=== PATIENT | male | born 1990 | race Caucasian/White ===

== ENCOUNTER 2018-03-11 15:25 | Emergency (ER) | payer BC, OTHER ==
[2018-03-11 15:38] VITALS: BP 136/70
--- NOTE | 2018-03-11 15:47 | UC ---
Skin Complaint HPI - HPI Summary HPI Summary: PATIENT PRESENTS WITH A TICK BITE TO HIS RIGHT ABDOMEN. IS FAIRLY CERTAIN THE TICK ATTACHED WITHIN THE PAST 24 HOURS AND HE REMOVED IT TODAY. HE HAS DEVELOPED A RED RING AROUND THE BITE SITE. OTHERWISE FEELS WELL. NO FEVER, HEADACHE, BODY ACHES, JOINT PAIN. IS AN ACTIVE PERSON AND SPENDS A LOT OF TIME OUTSIDE. - History of Current Complaint Chief Complaint: UCSkin Time Seen by Provider: 03/11/18 15:29 Stated Complaint: TICK BITE Hx Obtained From: Patient Onset/Duration: Gradual Onset, Lasting Days, Still Present Onset Severity: Mild Current Severity: Mild Pain Intensity: 0 Pain Scale Used: 0-10 Numeric Location: Discrete - RIGHT ABDOMEN Character: Redness Aggravating Factor(s): Nothing Alleviating Factor(s): Nothing Associated Signs & Symptoms: Positive: Rash Related History: Insect Bite/Sting - Allergy/Home Medications Allergies/Adverse Reactions: Allergies Allergy/AdvReac Type Severity Reaction Status Date / Time cefixime [From Suprax] Allergy Rash Verified 03/11/18 15:39 Penicillins Allergy Rash Verified 03/11/18 15:39 Review of Systems Constitutional: Negative Skin: Rash Respiratory: Negative Cardiovascular: Negative Gastrointestinal: Negative All Other Systems Reviewed And Are Negative: Yes PMH/Surg Hx/FS Hx/Imm Hx Previously Healthy: Yes - Surgical History Surgical History: Yes Surgery Procedure, Year, and Place: inguinal hernia - Family History Known Family History: Negative: Hypertension - Social History Alcohol Use: Rare Substance Use Type: None Smoking Status (MU): Current Some Day Smoker Amount Used/How Often: one pack over one month Physical Exam Triage Information Reviewed: Yes Appearance: Well-Appearing, No Pain Distress, Well-Nourished Vital Signs: Initial Vital Signs Temp 98.2 F 03/11/18 15:34 Pulse 84 03/11/18 15:34 Resp 19 03/11/18 15:34 BP 136/70 03/11/18 15:34 Pulse Ox 98 03/11/18 15:34 Vital Signs Reviewed: Yes Eyes: Positive: Conjunctiva Clear ENT: Positive: Hearing grossly normal Neck: Positive: Supple Respiratory: Positive: No respiratory distress, No accessory muscle use Cardiovascular: Positive: Pulses Normal Abdomen Description: Positive: Soft Musculoskeletal: Positive: No Edema Neurological: Positive: Alert Psychological: Positive: Age Appropriate Behavior Skin: Positive: rashes - 7CM DIAMETER RING OF ERYTHEMA WITH CENTRAL CLEARING SURROUNDING TICK BITE RIGHT ABDOMEN Course/Dx - Diagnoses Provider Diagnoses: 1. TICK BITE. 2. POSSIBLE EM RASH Discharge - Sign-Out/Discharge Documenting (check all that apply): Discharge/Admit/Transfer - Discharge Plan Condition: Stable Disposition: HOME Prescriptions: Doxycycline Monohydrate [Doxycycline Monohydrate] 1 cap PO BID #28 cap Patient Education Materials: Lyme Disease (ED), Tick Bite (ED) Referrals: Sonali PIERRE,Jaime Ybarra [Medical Doctor] - 1 Week Additional Instructions: YOU HAVE WHAT APPEARS TO BE AN ERYTHEMA MIGRANS RASH SURROUNDING YOUR TICK BITE WHICH IS A SIGN OF LYME DISEASE. WILL TREAT WITH 2 WEEKS OF DOXY. AVOID SUN EXPOSURE THIS MED WILL MAKE YOU MORE SENSITIVE TO UV RAYS. GIVEN THE ATYPICAL TIMING OF THIS RASH CALL DR. MCINTOSH'S OFFICE FOR A FOLLOW-UP APPT FOR FURTHER EVALUATION. - Billing Disposition and Condition Condition: STABLE Disposition: HOME
== END 2018-03-11 16:00 | disposition home or self-care (01) ==
LOC: UCEAST 15:25
DX: S30.861A Insect bite (nonvenomous) of abdominal wall, initial encounter (principal); W57.XXXA Bitten or stung by nonvenomous insect and other nonvenomous arthropods, initial encounter; Y93.9 Activity, unspecified; Y92.9 Unspecified place or not applicable; R21 Rash and other nonspecific skin eruption; Z88.1 Allergy status to other antibiotic agents; Z88.0 Allergy status to penicillin; Z72.0 Tobacco use
CPT/HCPCS: 99212; G0463

== ENCOUNTER 2018-08-23 18:38 | Emergency (ER) | payer BC ==
[2018-08-23] MEDS ORDERED: Ketorolac INJ* 60 MG/2 ML VIAL IM ONE (19:26)
[2018-08-23] MEDS ORDERED: oxyCODONE/Acetamin 5/325 MG* TAB PO ONE (19:26)
--- NOTE | 2018-08-23 19:29 | ED ---
Throat Pain/Nasal Congestion - HPI Summary HPI Summary: 27 year old male presents with dental pain for the past couple days. He states he states he notices swelling to his lower jaw this morning. He start a script he had for clindamycin that was given for a different injury a couple weeks ago. He denies any fevers. He has a dental appointment on Friday. he states the pain is extreme and is here for pain meds. took his dad oxycodone with some relief. no chest pain or SOB. no abdominal pain. no difficulty swallowing. - History of Current Complaint Chief Complaint: EDDentalPain Time Seen by Provider: 08/23/18 19:08 - Allergies/Home Medications Allergies/Adverse Reactions: Allergies Allergy/AdvReac Type Severity Reaction Status Date / Time cefixime [From Suprax] Allergy Rash Verified 08/23/18 18:40 Penicillins Allergy Rash Verified 08/23/18 18:40 PMH/Surg Hx/FS Hx/Imm Hx Endocrine/Hematology History: Denies: Hx Diabetes, Hx Thyroid Disease Cardiovascular History: Denies: Hx Hypertension Respiratory History: Denies: Hx Asthma, Hx Chronic Obstructive Pulmonary Disease (COPD) GI History: Denies: Hx Ulcer - Surgical History Surgery Procedure, Year, and Place: inguinal hernia Infectious Disease History: Yes Infectious Disease History: Reports: Hx of Known/Suspected MRSA Denies: Hx Hepatitis, Hx Human Immunodeficiency Virus (HIV), History Other Infectious Disease, Traveled Outside the in Last 30 Days - Family History Known Family History: Negative: Hypertension - Social History Alcohol Use: Rare Substance Use Type: Reports: None Smoking Status (MU): Current Some Day Smoker Amount Used/How Often: one pack over one month Review of Systems Negative: Fever Positive: Dental Pain Negative: Chest Pain Negative: Shortness Of Breath All Other Systems Reviewed And Are Negative: Yes Physical Exam Triage Information Reviewed: Yes Vital Signs On Initial Exam: Initial Vitals Temp Pulse Resp BP Pulse Ox 99 F 77 16 151/103 98 08/23/18 18:40 08/23/18 18:40 08/23/18 18:40 08/23/18 18:40 08/23/18 18:40 Vital Signs Reviewed: Yes Appearance: Positive: Well-Appearing Skin: Positive: Warm, Dry Head/Face: Positive: Normal Head/Face Inspection Eyes: Positive: Normal, EOMI, LAUREN, Conjunctiva Clear ENT: Positive: Normal ENT inspection, Pharynx normal, TMs normal Dental: Positive: Gross Decay/Caries @ - throughout, Abscess @ - left lower jaw swelling with no area of locaculation Respiratory/Lung Sounds: Positive: Clear to Auscultation, Breath Sounds Present Cardiovascular: Positive: Normal, RRR Musculoskeletal: Positive: Normal Neurological: Positive: Normal Psychiatric: Positive: Normal Diagnostics - Vital Signs Vital Signs Temp Pulse Resp BP Pulse Ox 08/23/18 18:40 99 F 77 16 151/103 98 - Laboratory Lab Statement: Any lab studies that have been ordered have been reviewed, and results considered in the medical decision making process. EENT Course/Dx - Course Course Of Treatment: 27 year old male presents with dental pain for the past couple days. He states he states he notices swelling to his lower jaw this morning. He start a script he had for clindamycin that was given for a different injury a couple weeks ago. He denies any fevers. He has a dental appointment on friday. he states the pain is extreme and is here for pain meds. took his dad oxycodone with some relief. no chest pain or SOB. no abdominal pain. no difficulty swallowing. on exam has swelling to left lower jaw. will give short course of pain relief until antibiotics can work. patient understand and agrees with plan. - Differential Diagnoses Differential Diagnoses: Dental Abscess, Dental Caries, Fractured Tooth - Diagnoses Provider Diagnoses: Dental abscess Discharge - Sign-Out/Discharge Documenting (check all that apply): Patient Departure - Discharge Plan Condition: Good Disposition: HOME Prescriptions: oxyCODONE/Acetamin 5/325 MG* [Percocet 5/325 TAB*] 1 tab PO Q6H PRN #8 tab MDD 4 PRN Reason: Pain Patient Education Materials: Dental Abscess (ED) Referrals: [facility] [Outside] Additional Instructions: Take clindamycin four times a day for 7 days Take ibuprofen every 6 hours for pain as needed, use narcotic every 6 hours for extreme pain Avoid hard, crunchy food until seen by dentist Return to ED if develop fever, shortness of breath, pain with eye movement or swelling around eye Establish care with primary care physician and dentist as soon as possible - Billing Disposition and Condition Condition: GOOD Disposition: Home
[2018-08-23 20:09] VITALS: BP 137/82
== END 2018-08-23 20:07 | disposition home or self-care (01) ==
LOC: ED 18:38
DX: K04.7 Periapical abscess without sinus (principal); F17.210 Nicotine dependence, cigarettes, uncomplicated; Z88.0 Allergy status to penicillin
CPT/HCPCS: 96372; 99282; A9270-GY; J1885

== ENCOUNTER 2018-12-30 16:00 | Emergency (ER) | payer BC, OTHER ==
[2018-12-30 16:23] VITALS: BP 126/79
--- NOTE | 2018-12-30 16:52 | UC ---
Throat Pain/Nasal Rick HPI - HPI Summary HPI Summary: 28 y/o male presents to the urgent care c/o nasal congestion w/ yellowish nasal discharge, mild BETTENCOURT, body aches and subjective low grade fever at home since Friday12/26/2018. symptoms worsen 2 days ago w/ dry cough and sore throat. Pain w/ swallowing is 6/10. He has taken Nyquill PO to alleviate symptoms. Pt denies fever today, SOB, wheeaing, chest pain, abdominal pain, N/V/D. Hx of recent travel or recent dental procedures or exposure to influenza. - History of Current Complaint Chief Complaint: UCGeneralIllness Stated Complaint: SORE THROAT Time Seen by Provider: 12/30/18 16:51 Hx Obtained From: Patient Onset/Duration: Gradual Onset, Lasting Days - 5 days, Still Present, Worse Since - 2 days Severity: Moderate Pain Intensity: 6 Pain Scale Used: 0-10 Numeric Cough: Nonproductive Associated Signs & Symptoms: Positive: Dysphagia, Sinus Discomfort, Nasal Discharge - yellowish discharge, Fever - at the beginning of symptoms - Epiglottits Risk Factors Epiglottis Risk Factors: Negative - Allergies/Home Medications Allergies/Adverse Reactions: Allergies Allergy/AdvReac Type Severity Reaction Status Date / Time cefixime [From Suprax] Allergy Rash Verified 12/30/18 16:23 Penicillins Allergy Rash Verified 12/30/18 16:23 PMH/Surg Hx/FS Hx/Imm Hx Previously Healthy: Yes - Pt denies PMHX - Surgical History Surgical History: Yes Surgery Procedure, Year, and Place: inguinal hernia - Family History Known Family History: Positive: None - Pt denies FMHX Negative: Hypertension - Social History Occupation: Employed Full-time Lives: With Family Alcohol Use: Occasionally Substance Use Type: None Smoking Status (MU): Light Every Day Tobacco Smoker Amount Used/How Often: one pack over one month Review of Systems All Other Systems Reviewed And Are Negative: Yes Constitutional: Positive: Fever - at the beginning of symptms, Chills, Fatigue, Other - body ahces Eyes: Positive: Negative ENT: Positive: Sore Throat, Ear Ache - left ear pain, Nasal Discharge - yellowish, Sinus Congestion, Sinus Pain/Tenderness Respiratory: Positive: Cough - dry Cardiovascular: Positive: Negative Gastrointestinal: Positive: Negative Genitourinary: Positive: Negative Motor: Positive: Negative Neurovascular: Positive: Negative Musculoskeletal: Positive: Myalgia Neurological: Positive: Headache - mild Psychological: Positive: Negative Is Patient Immunocompromised?: No Physical Exam - Summary Physical Exam Summary: VITAL SIGNS: Reviewed. GENERAL: Patient is a well developed and nourished male who is sitting comfortable in the examining table. Patient is not in any acute respiratory distress. HEAD AND FACE: No signs of trauma. No ecchymosis, hematomas or skull depressions. No sinus tenderness. EYES: PERRLA, EOMI x 2, No injected conjunctiva, no nystagmus. No photophobia. EARS: Hearing grossly intact. Ear canals and tympanic membranes are within normal limits. MOUTH: Positive pharynx with erythema, exudates, palatal petechiae. B/L tonsillar enlargement with exudate. Uvula in midline. NECK: Supple, trachea is midline, Positive anterior cervical lymphadenopathy, no JVD, no carotid bruit, no c-spine tenderness, neck with full ROM. No meningeal signs, no Kernig's or brudzinskis signs. CHEST: Symmetric, no tenderness at palpation LUNGS: Clear to auscultation bilaterally. No wheezing or crackles. CVS: Regular rate and rhythm, S1 and S2 present, no murmurs or gallops appreciated. ABDOMEN: Soft, non-tender. No signs of distention. No rebound no guarding, and no masses palpated. Bowel sounds are normal. EXTREMITIES: FROM in all major joints, no edema, no cyanosis or clubbing. NEURO: Alert and oriented x 3. No acute neurological deficits. Speech is normal and follows commands. SKIN: Dry and warm Triage Information Reviewed: Yes Vital Signs: Initial Vital Signs Temp 99.4 F 12/30/18 16:20 Pulse 86 12/30/18 16:20 Resp 16 12/30/18 16:20 BP 126/79 12/30/18 16:20 Pulse Ox 98 12/30/18 16:20 Throat Pain/Nasal Course/Dx - Course Course Of Treatment: 28 y/o male presents to the urgent care c/o nasal congestion w/ yellowish nasal discharge, mild BETTENCOURT, body aches and subjective low grade fever at home since Friday12/26/2018. symptoms worsen 2 days ago w/ dry cough and sore throat. Pain w/ swallowing is 6/10. He has taken Nyquill PO to alleviate symptoms. Pt denies fever today, SOB, wheeaing, chest pain, abdominal pain, N/V/D. Hx of recent travel or recent dental procedures or exposure to influenza. Hx obtained. Rapid strep ordered, result: negative. Rapid Influenza A &B: negative. Viral pharyngitis.Pt Rx ibuprofen PO to alleviates symptoms of pain and swelling. Pt givne first dose of Ibuprofen PO at the clinic. Pt tolerated well medication and felt better. Pt declines Monospsot test. Pt Advised on hand washing to avoid spreading. Pt advised to rest, eat well and avoid strenuous exercise. If symptoms do not improve or worsen advised to return to the urgent care or f/u with her PCP for further evaluation and treatment. d/c instrucitons explained. Pt understood and agreed - Differential Dx/Diagnosis Differential Diagnosis/HQI/PQRI: Influenza, Laryngitis, Otitis Media, Pharyngitis, Sinusitis, Tonsillitis, URI Provider Diagnosis: Acute viral pharyngitis Discharge - Sign-Out/Discharge Documenting (check all that apply): Patient Departure - d/c home All imaging exams completed and their final reports reviewed: No Studies - Discharge Plan Condition: Stable Disposition: HOME Prescriptions: Ibuprofen TAB* [Motrin TAB* 600 MG] 600 mg PO Q6H PRN #30 tab PRN Reason: Sore Throat Patient Education Materials: Pharyngitis (ED) Forms: *Work Release Referrals: [facility] [Outside] - 2 Days Additional Instructions: 1- Rapid Influenza A&B: negative, Rapid strep: negative. 2-Please take ibuprofen PO q6-8hrs prn as instructed after meals to alleviate pain and swelling. Increase fluid intake, eat well, rest and avoid strenuous exercise 3-If symptoms do not improve or worsen please return to the urgent care or f/u with your PCP for further evaluation and treatment. - Billing Disposition and Condition Condition: STABLE Disposition: Home - Attestation Statements Provider Attestation: I was available for consult. This patient was seen by the LEWIS. The patient was not presented to, seen by, or examined by me. -Leni
[2018-12-30 17:28] LABS: Influenza A Molecular NEGATIVE (Negative); Influenza B Molecular NEGATIVE (Negative)
[2018-12-30] MEDS ORDERED: Ibuprofen TAB* 400 MG PO ONE (17:32)
== END 2018-12-30 17:51 | disposition home or self-care (01) ==
LOC: UCEAST 16:00
DX: J02.9 Acute pharyngitis, unspecified (principal); F17.210 Nicotine dependence, cigarettes, uncomplicated; Z88.1 Allergy status to other antibiotic agents; Z88.0 Allergy status to penicillin
CPT/HCPCS: 87651; 99212; A9270-GY; G0463